=== PATIENT | male | born 1940 | race Caucasian/White ===

== ENCOUNTER 2017-07-23 18:13 | Inpatient (IN) | payer OTHER ==
--- NOTE | 2017-07-23 18:25 | PDOC ---
*Physical Exam - Vital Signs Last Vital Signs Temp Pulse Resp BP Pulse Ox 98.7 F 81 20 121/81 95 07/23/17 18:30 07/23/17 18:30 07/23/17 18:30 07/23/17 18:30 07/23/17 18:30 - Physical Exam Comments: 07/23/17 18:50 The patient is a 77 year old male with a pmhx of kidney stones who presents to the ED s/p LOC earlier today. The patient reports he was stung by yellow jacket bees multiple times on the left side of his body. Patient states he felt weak, short of breath, dizzy and shortly after syncopized. EMS was called and patient was sent to [place] ER. Patient had multiple skin lesions behind his left ear, arm and torso upon arrival to [facility] ER, now resolved. He was treated with pepsin, benadryl and steroids. After being watched for several hours, patient was transferred to the ED for EMT admission and airway monitoring. Patient comes into the ED only complaining of a hoarse voice but denies shortness of breath or difficulty swallowing. Denies any known allergies. Denies fevers or chills. Denies chest pain. Denies nausea, vomiting, or diarrhea. Denies any other symptoms. GENERAL: The patient is awake, alert, and fully oriented, in no acute distress. Vital signs normal. HEAD: Normal with no signs of trauma. EYES: Pupils equal, round and reactive to light, extraocular movements intact, sclera anicteric, conjunctiva clear with no pallor. ENT: Ears normal, nares patent, oropharynx clear without exudates. Moist mucous membranes. No stridor, speaking full sentences. NECK: Normal range of motion, supple without lymphadenopathy, JVD, or masses. LUNGS: Breath sounds equal, clear to auscultation bilaterally. No wheeze/ crackles. No accessory muscle use. HEART: Regular rate and rhythm, normal S1 and S2 without murmur or rub. ABDOMEN: Soft/nontender/nondistended. BS wnl. No guarding or rebound. No palpable masses. No hepatosplenomegaly. EXTREMITIES: Normal range of motion, no edema. No clubbing or cyanosis. No cords, erythema, or tenderness. NEUROLOGICAL: Cranial nerves II through XII grossly intact. Normal speech, normal gait. PSYCH: Normal mood, normal affect. SKIN:+ previously seen light lesions, now resolved with benadryl. Warm, Dry, normal turgor. No foreign bodies seen. <Simone Markham - Last Filed: 07/23/17 20:29> Medical Decision Making - Medical Decision Making 07/23/17 18:43 Received signout for transfer of this 77-year-old male who sustained likely anaphylactic shock to bee stings, markedly symptoms and improvement after IV Benadryl/Pepcid/steroids but sent for admission for airway monitoring and ENT evaluation secondary to persistent hoarse voice. Vital signs stable here, airway patent with clear lung sounds Voice is in fact still hoarse, and managing secretions easily and speaking full sentences. Discussed with Dr. Recinos of ENT Will admit for airway/respiratory monitoring, ? ICU pending ENT recommendations 07/23/17 19:12 Discussed with ENT and building architect Dr. Hernandez, agree best to monitor in ICU pending ENT scope. Accepted for admission by hospitalist, charito [facility]. 07/23/17 20:[address] Recinos, scope in ED. Given anaphylactic shock reaction ( BP 80/40 with EMS), will proceed with ICU monitoring despite airway being clear at this time. <Roman Gipson - Last Filed: 07/23/17 20:16> - Medical Decision Making 07/23/17 20:[address] Hernandez at 19:08 <Simone Markham - Last Filed: 07/23/17 20:29> *DC/Admit/Observation/Transfer - Discharge Dispostion Admit: Yes <Roman Gipson - Last Filed: 07/23/17 20:16> - Attestations Scribe Attestion: 07/23/17 18:50 Documentation prepared by Simone Markham, acting as medical equipment repair technician for Roman Gipson MD <Simone Markham - Last Filed: 07/23/17 20:29> Diagnosis at time of Disposition: Anaphylaxis Qualifiers: Encounter type: initial encounter Qualified Code(s): T78.2XXA - Anaphylactic shock, unspecified, initial encounter - Discharge Dispostion Condition at time of disposition: Guarded - Referrals Referrals: Kimberly Gregory MD [Primary Care Provider] -
[2017-07-23 18:34] VITALS: BMI 23.6
--- NOTE | 2017-07-23 20:28 | CONSULT ---
Consult - text type - Consultation Consultation Note: Patient is 77 y/o male with presented to [place] ER after being stung by several bees. Patietn reports that he briefly lost conscious for a few minutes and then woke up coughing and had hoarse voice. [place] treated him for angioedema with solumderol. He denies any SOB, dysphagia, odynophagia. PMH: Denies Meds: denies NKDA SH: NC FH: NC Pe: awake , alert, mild raspy voice, no drooling, comfortable Ear right Eac with cermuen left Eac wnl. Tm wnl AU NC: septum deviated to the left. mucosa wnl. It wnl.. OC: mucosa wnl (no edema) , FOM wnl,tongue wnl. OP: uvula midline, no pharyngeal edema or asymmetry Neck: supple DFL: DNS to the left. No pus or polyps in the right NC. NPx wnl, Opx wnl. Hypophaynx: pharyngeal coulter wnl, epiglottis wnl. arytenoids wnl. postcircoid mucsa wnl. piriforms sinuses wnl. no secretions. larynx: Vocal folds wn- no edema. Vfs mobile bilaterally. Airway widely patent and no airway edema. A/P: Patietn with h/o multiple bees stings with h/o LOC and coughing afterward.treated for angioedema at [place]. no with normal ent exam and verty mild hoarseness after coughing when he regained consciousness. No evidence of angioedema presently but recommend cont. monitoring for this in case he had a dramatic response to medical therapy for this and rebounds as steroids are being weaned. Recommend weaning steroids slowly in monitored setting, IV benadryl and pepcid or zantac. Work up of LOC as per medical team. Efra Recinos mobile [phone]
--- NOTE | 2017-07-23 22:01 | CONSULT ---
Consult Consult Specialty:: Pulm/CCM Reason for Consultation:: anaphylaxis r/t bee sting - History of Present Illness Chief Complaint: bee sting History of Present Illness: This is a 77 yo man w/ no PMH who presented to ED after numerous (~12) yellow jackets/hornets stings to his left arm, and face. Patient was gardening when he disturbed a nest and was stung, post stins he became dizzy syncopized w/ LOC ~ 2min. Upon awakening he was very weak and had SOB. EMS was activated and patient was transferred to [place] ED. In the ED he received benadryl, pepcid and steroids. ENT evaluation w/o any evidence of airway edema. PAtient transferred to ICU for continued care and monitoring. VSS, mental status intact. Denies: SOB, CP, EVANS, n/v, blurry vision, difficulty swallowing or speaking - History Source History Provided By: Patient Limitations to Obtaining History: No Limitations - Past Medical History Renal/: Yes: Renal Calculi - Alcohol/Substance Use Hx Alcohol Use: No - Smoking History Smoking history: Never smoked Have you smoked in the past 12 months: No - Social History Usual Living Arrangement: With Spouse Place of : [facility] History of Recent Travel: No Home Medications - Allergies Allergies/Adverse Reactions: Allergies Allergy/AdvReac Type Severity Reaction Status Date / Time No Known Allergies Allergy Verified 07/23/17 18:29 Family Disease History - Family Disease History Family History: Unremarkable Review of Systems - Review of Systems Constitutional: reports: Weakness Cardiovascular: reports: Shortness of Breath Physical Exam Vital Signs: Vital Signs Temperature 98.1 F 07/23/17 21:00 Pulse Rate 72 07/23/17 21:00 Respiratory Rate 20 07/23/17 21:00 Blood Pressure 122/74 07/23/17 21:00 O2 Sat by Pulse Oximetry (%) 100 07/23/17 21:00 Constitutional: Yes: Well Nourished, No Distress, Calm Eyes: Yes: Conjunctiva Clear, EOM Intact HENT: Yes: Normocephalic, Other (errythemia on left side of face and neck) Neck: Yes: Trachea Midline Cardiovascular: Yes: Regular Rate and Rhythm, S1, S2 Respiratory: Yes: CTA Bilaterally Gastrointestinal: Yes: Normal Bowel Sounds, Soft Musculoskeletal: Yes: WNL Extremities: Yes: WNL Edema: No Neurological: Yes: Alert, Oriented Psychiatric: Yes: Oriented Problem List - Problems (1) Anaphylaxis Code(s): T78.2XXA - ANAPHYLACTIC SHOCK, UNSPECIFIED, INITIAL ENCOUNTER Qualifiers: Encounter type: initial encounter Qualified Code(s): T78.2XXA - Anaphylactic shock, unspecified, initial encounter (2) Insect sting allergy, current reaction Code(s): T63.481A - TOXIC EFFECT OF VENOM OF ARTHROPOD, ACCIDENTAL, INIT (3) Syncope and collapse Code(s): R55 - SYNCOPE AND COLLAPSE Assessment/Plan This is a 77 yo man w/ no PMH who presented to ED after numerous (~12) yellow jackets/hornets stings to his left arm, and face. Patient was gardening when he disturbed a nest and was stung, post stins he became dizzy syncopized w/ LOC ~ 2min. Upon awakening he was very weak and had SOB. EMS was activated and patient was transferred to [place] ED. In the ED he received benadryl, pepcid and steroids. ENT evaluation w/o any evidence of airway edema. PAtient transferred to ICU for continued care and monitoring. VSS, mental status intact. Denies: SOB, CP, EVANS, n/v, blurry vision, difficulty swallowing or speaking 77 yo man with hymenoptera sting with syncope/LOC, SOB transferred to ICU for evaluation of delayed-type hypersensitivity -Cold compresses to sting site -will defer future steroids given quick resolution of edema -NSAIDs for pain -Pruritus can be treated with oral antihistamines and pepcid -DVT prophylaxis w/ SCD (low risk) -incentive maxim Boerem ACNP Pulm/CCM CCT: 35m
--- NOTE | 2017-07-23 22:28 | HP ---
CHIEF COMPLAINT: PCP: HISTORY OF PRESENT ILLNESS: 77 year old male that presented to [place] ED after an episode of syncope that followed him being stung by hornets. He was stung aound 3 pm , multiple sting bites to left side of his face ar, and chest. He developed pruritus immediately and went inside to apply topical benadryl however started feeling dizzy and syncopated. This was witnessed by his who called EMS. He regained consciousness shortly and recalls feeling short of breath . He was treated in ED with iv solumedrol and Benadryl which alleviated his symptoms. ER course was notable for: (1) (2) (3) Recent Travel: no PAST MEDICAL HISTORY: none PAST SURGICAL HISTORY: appendectomy Social History: Smoking:no Alcohol: wine daily Drugs: no Family History: no history of cancer or premature CAD Allergies No Known Allergies Allergy (Verified 07/23/17 18:29) Active Medications Generic Name Dose Route Start Last Admin Trade Name Freq PRN Reason Stop Dose Admin Chlorhexidine Gluconate 1 applic 07/24/17 22:00 Hibiclens For Decolonization - TP HS [facility] Diphenhydramine HCl 50 mg 07/24/17 22:00 Benadryl - PO HS [place] Famotidine/Sodium Chloride 50 mls @ 100 mls/hr 07/23/17 22:15 Pepcid 20 Mg Premixed Ivpb - IVPB BID [facility] Mupirocin 1 applic 07/24/17 10:00 Bactroban Ointment (For Decolonization) - NS 07/29/17 09:59 BID [place] REVIEW OF SYSTEMS CONSTITUTIONAL: Absent: fever, chills, diaphoresis, generalized weakness, malaise, loss of appetite, weight change HEENT: Present postnasal drip throat swelling, no mouth swelling, no ear pain, no eye pain, no visual changes CARDIOVASCULAR: Absent: chest pain, syncope, palpitations, irregular heart rate, lightheadedness , peripheral edema RESPIRATORY: Absent: cough, hemoptysis GASTROINTESTINAL: Absent: abdominal pain, abdominal distension, nausea, vomiting, diarrhea, constipation, melena, hematochezia GENITOURINARY: Absent: dysuria, frequency, urgency, hesitancy, hematuria, flank pain, genital pain MUSCULOSKELETAL: Absent: myalgia, arthralgia, joint swelling, back pain, neck pain SKIN: Absent: rash, itching, pallor HEMATOLOGIC/IMMUNOLOGIC: Absent: easy bleeding, easy bruising, lymphadenopathy, frequent infections ENDOCRINE: Absent: unexplained weight gain, unexplained weight loss, heat intolerance, cold intolerance NEUROLOGIC: Absent: headache, focal weakness or paresthesias, dizziness, unsteady gait, seizure, mental status changes, bladder or bowel incontinence PSYCHIATRIC: Absent: anxiety, depression, suicidal or homicidal ideation, hallucinations. PHYSICAL EXAMINATION Vital Signs Temperature 98.5 F 07/23/17 21:47 Pulse Rate 75 07/23/17 21:47 Respiratory Rate 20 07/23/17 21:47 Blood Pressure 130/69 07/23/17 21:47 O2 Sat by Pulse Oximetry (%) 98 07/23/17 21:47 GENERAL: Awake, alert, and fully oriented, in no acute distress. HEAD: Normal with no signs of trauma. EYES: Pupils equal, round and reactive to light, extraocular movements intact, sclera anicteric, conjunctiva clear. No lid lag. EARS, NOSE, THROAT: Ears normal, nares patent, oropharynx clear without exudates. Moist mucous membranes. mucosa wnl (no edema) , FOM wnl,tongue wnl. OP: uvula midline, no pharyngeal edema or asymmetry NECK: Normal range of motion, supple without lymphadenopathy, JVD, or masses. LUNGS: Breath sounds equal, clear to auscultation bilaterally. No wheezes, and no crackles. No accessory muscle use. HEART: Regular rate and rhythm, normal S1 and S2 without murmur, rub or gallop. ABDOMEN: Soft, nontender, not distended, normoactive bowel sounds, no guarding, no rebound, no masses. No hepatomegaly or splenomegaly. MUSCULOSKELETAL: Normal range of motion at all joints. No bony deformities or tenderness. No CVA tenderness. UPPER EXTREMITIES: 2+ pulses, warm, well-perfused. No cyanosis. No clubbing. No peripheral edema. LOWER EXTREMITIES: 2+ pulses, warm, well-perfused. No calf tenderness. No peripheral edema. NEUROLOGICAL: Cranial nerves II-XII intact. Normal speech. Normal gait. PSYCHIATRIC: Cooperative. Good eye contact. Appropriate mood and affect. SKIN: Warm, dry, normal turgor, no rashes or lesions noted, normal capillary refill. labs reviewed ASSESSMENT/PLAN: 1. Anaphylaxis/ angioedema/ impending respiratory failure - resolving after initial treatment in ED, however, due to risk of rebound will need to slowly taper IV steroids in monitored setting . - taper IV steroids - pepcid - O2 supplement - IV benadryl PRN 2. LOC - secondary to anaphylaxis and transient hypotension . Now resolved . Visit type - Emergency Visit Emergency Visit: Yes ED Registration Date: 07/23/17 Care time: The patient presented to the Emergency Department on the above date and was hospitalized for further evaluation of their emergent condition. - New Patient This patient is new to me today: Yes Date on this admission: 07/23/17 - Critical Care Critical Care patient: No
[2017-07-23] MEDS: FAMOTIDINE 20 MG/50 ML IVPB 50 ML IVPB SCH (23:08)
[2017-07-24] MEDS: FAMOTIDINE 20 MG/50 ML IVPB 50 ML IVPB SCH (09:09)
[2017-07-24] MEDS ORDERED: MUPIROCIN 2% TOPICAL OINTMENT FOR DECOLONIZATION NS SCH (10:00)
--- NOTE | 2017-07-24 10:18 | DS ---
Physical Exam: SUBJECTIVE: Patient seen and examined, in no distress and talking in full sentences, says that he had bee sting him multiple times on the left side of face, left arm and thorax after which he passed out and his called EMS. Denies any chest pain , SIB, wheezing or discomfort. OBJECTIVE: Vital Signs Period Temp Pulse Resp BP Sys/[place] Pulse Ox Last 24 Hr 97.5 F-98.5 F 57-75 12-20 114-130/62-71 98-99 PHYSICAL EXAM GENERAL: The patient is awake, alert, and fully oriented, in no acute distress. HEAD: Normal with no signs of trauma. no erythema EYES: PERRL, extraocular movements intact, sclera anicteric, conjunctiva clear. ENT: Ears normal, nares patent, oropharynx clear without exudates, moist mucous membranes. NECK: Trachea midline, full range of motion, supple. LUNGS: Breath sounds equal, clear to auscultation bilaterally, no wheezes, no crackles, no accessory muscle use. HEART: Regular rate and rhythm, S1, S2 without murmur, rub or gallop. THORAX: Left posterior with erythema s/p bee bites, nontender. ABDOMEN: Soft, nontender, nondistended, normoactive bowel sounds, no guarding, no rebound, no hepatosplenomegaly, no masses. EXTREMITIES: 2+ pulses, warm, well-perfused, no edema. NEUROLOGICAL: Cranial nerves II through XII grossly intact. Normal speech, gait not observed. PSYCH: Normal mood, normal affect. SKIN: Warm, dry, normal turgor,erythema on left side at site of bites. LABS HOSPITAL COURSE: Admitted and given benadryl, pepcid and ENT evaluation, placed in ICU for close respiratory observation. No acute issues overnight and can be discharged home with benadryl PRN. Date of Admission:07/23/17 Date of Discharge: 07/24/17 Minutes to complete discharge: 30 Discharge Summary Reason For Visit: ANAPHYLAXIS Current Active Problems Anaphylaxis (Acute) Condition: Fair - Instructions Referrals: Kimberly Gregory MD [Primary Care Provider] - Disposition: HOME Problem List - Problems (1) Insect sting allergy, current reaction Code(s): T63.481A - TOXIC EFFECT OF VENOM OF ARTHROPOD, ACCIDENTAL, INIT Qualifiers: Encounter type: initial encounter (2) Syncope and collapse Code(s): R55 - SYNCOPE AND COLLAPSE This patient is new to me today: Yes Date on this admission: 07/24/17 Emergency Visit: Yes ED Registration Date: 07/23/17 Care time: The patient presented to the Emergency Department on the above date and was hospitalized for further evaluation of their emergent condition. Critical Care patient: Yes Total Critical Care Time (in minutes): 35 Critical Care Statement: The care of this patient involved high complexity decision making to prevent further life threatening deterioration of the patient 's condition and/or to evaluate & treat vital organ system(s) failure or risk of failure. - Discharge Referral Referred to [facility] Yes Physician Referral: Kimberly Gregory MD ([facility])
[2017-07-24 10:24] VITALS: TEMP 98
[2017-07-24 12:24] VITALS: BP 136/70; PULSE 87
[2017-07-24] MEDS ORDERED: CHLORHEXIDINE GLUCONATE 4% CLEANSER FOR DECOLONIZATION TP SCH (22:00)
[2017-07-24] MEDS ORDERED: diphenhydrAMINE HCL 25 MG CAPSULE (FP) PO SCH (22:00)
== END 2017-07-24 14:09 | disposition home or self-care (01) | DRG 918 ==
LOC: JER 18:13 → JERBED 21:21 → JICU 21:37
PROVIDERS: ADMIT Internal Medicine; ATTEND Internal Medicine
DX: T63.441A Toxic effect of venom of bees, accidental (unintentional), initial encounter (principal); T78.2XXA Anaphylactic shock, unspecified, initial encounter; R55 Syncope and collapse; I95.9 Hypotension, unspecified
CPT/HCPCS: 36415; 71010-TC; 80053; 82553; 83735; 84100; 84484; 85025; 93005; 99282-25; 99285-25